=== PATIENT | male | born 1960 | race Caucasian/White ===

== ENCOUNTER → 2025-02-24 | Outpatient (CLI) | payer MEDICARE ==
--- NOTE | 2025-02-24 13:57 | HMCIMG ---
Exam Type: US VENOUS DOPPLER BILATERAL Clinical Information: acute thrombis Comparison: None Findings: The examination shows nonocclusive thrombosis of the left lower extremity including the superficial femoral vein, popliteal vein, common femoral vein, and GSV. The rest of the venous structures evaluated shows no evidence of thrombosis. IMPRESSION: Thrombus as noted.
== END | disposition home or self-care (01) ==
LOC: RAH 12:04
PROVIDERS: ATTEND Internal Medicine Medical Oncology
DX: I82.812 Embolism and thrombosis of superficial veins of left lower extremity (principal); I82.432 Acute embolism and thrombosis of left popliteal vein; I82.412 Acute embolism and thrombosis of left femoral vein; I82.890 Acute embolism and thrombosis of other specified veins
CPT/HCPCS: 93970